=== PATIENT | male | born 1970 | race Caucasian/White ===

== ENCOUNTER 2020-08-06 11:04 | Emergency (ER) | payer OTHER ==
[~2020-08-06] VITALS: Ht 170.2 cm; Wt 98.9 kg
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
--- NOTE | 2020-08-06 11:10 | NUR ---
SEEN AND EXAMINED BY .
[2020-08-06] MEDS ORDERED: TDAP [DIPH/PERTUSSIS/TET] 0.5 ML VIAL IM ONE ×2 (11:19→11:30)
[2020-08-06] MEDS ORDERED: HYDROMORPHONE 1 MG/1 ML DISP.SYRIN ONE (11:19)
[2020-08-06] MEDS ORDERED: ONDANSETRON HCL/PF 4 MG/2 ML VIAL ONE (11:19)
--- NOTE | 2020-08-06 11:23 | NUR ---
WOUND CLEANING AND DRESSING DONE BY JAVA GROOV[employer] DEVELOPER.
[2020-08-06] MEDS ORDERED: CEFAZOLIN 1 GM in IV D5W 50 ML IV ONE (11:30)
[2020-08-06] MEDS ORDERED: HYDROMORPHONE 1 MG/1 ML DISP.SYRIN IV ONE (11:30)
[2020-08-06] MEDS ORDERED: ONDANSETRON HCL/PF 4 MG/2 ML VIAL IVP ONE (11:30)
--- NOTE | 2020-08-06 11:30 | NUR ---
COVID SPECIMEN OBTAINED AND SENT TO LAB.
--- NOTE | 2020-08-06 11:40 | NUR ---
PT IS WHEELED TO CT SCAN VIA [facility].
--- NOTE | 2020-08-06 12:15 | NUR ---
FAXED CLINICALS TO [facility].
--- NOTE | 2020-08-06 12:24 | NUR ---
FAXED CLINICALS TO [facility].
--- NOTE | 2020-08-06 12:42 | NUR ---
FAXED CLINICALS TO [facility].
--- NOTE | 2020-08-06 13:00 | NUR ---
FAXED CLINICALS TO [facility].
--- NOTE | 2020-08-06 13:04 | NUR ---
CALLED AND SPOKE TO PRETTY AT [facility]. UNABLE TO ACCEPT PATIENT DUE TO DO NOT HAVE SPECIALTY IN HOUSE.
--- NOTE | 2020-08-06 14:00 | NUR ---
CALLED AND SPOKE TO BALTAZAR FROM [facility] REGARDING UPDATE ON TRANSFER. AT THIS TIME OPTHAMOLOGIST IS CURRENTLY IN SURGERY, UNABLE TO CALL BACK. ONCE DOCTOR IS AVAILABLE, WILL CONTACT US BACK.
--- NOTE | 2020-08-06 14:20 | NUR ---
SPOKE TO CATHY FROM [facility]. THEY ARE UNABLE TO ACCOMODATE PATIENT. NO BEDS AVAILABLE.
[2020-08-06] MEDS ORDERED: hydrALAZINE HCL IV 20 MG VIAL IV ONE (14:30)
[2020-08-06] MEDS ORDERED: hydrALAZINE HCL IV 20 MG VIAL ONE (14:43)
--- NOTE | 2020-08-06 15:23 | NUR ---
CALLED [facility] AND SPOKE TO DIANA. ASKED FOR AN UPDATE AFTER SHE ADVISED TO CALL BACK IN 1 HOUR. STATED THAT THEIR OPTHOMOLOGIST IS STILL IN SURGERY, HE WILL CALL BACK WHEN HE IS AVAILABLE. STATED "IF YOU PICKED UP YOUR PHONES THEN YOU WOULD HAVE TALKED WITH HIM". STILL NO MD CALL BACK AT THIS MOMENT.
[2020-08-06 15:52] LABS: BASOPHILS # (AUTO) 0.1 /CMM (0.0-0.2); BASOPHILS % (AUTO) 0.4 % (0.0-2.0); EOSINOPHILS % (AUTO) 0.1 % (0.0-6.0); HEMATOCRIT 44 % (39-51); HEMOGLOBIN 14.8 g/dL (13.5-17.5); LYMPHOCYTES # (AUTO) 0.7 /CMM (0.8-4.8); MEAN CORPUSCULAR HGB CONC 33 g/dl (31.0-36.0); MEAN CORPUSCULAR VOLUME 85 fL (80-96); MONOCYTES # (AUTO) 0.6 /CMM (0.1-1.30); MONOCYTES % (AUTO) 4.5 % (2.0-12.0); NEUTROPHILS # (AUTO) 12.2 /CMM (1.8-8.9); PLATELET COUNT (AUTO) 198 /CMM (150-450); RED BLOOD CELL COUNT(AUTO) 5.24 MIL/uL (4.5-6.0); WHITE BLOOD COUNT (AUTO) 13.6 K/uL (4.3-11.0)
--- NOTE | 2020-08-06 15:53 | NUR ---
KIM CALLED TO [place] [facility]OLOG[facility] DISC TO [facility], ETA 30-45 MINUTES
[2020-08-06 16:03] LABS: CARBON DIOXIDE 24 mmol/L (21-32); CHLORIDE 99 mmol/L (98-107); CREATININE 0.9 mg/dL (0.6-1.3); GLUCOSE 157 mg/dL (74-106); POTASSIUM 3.9 mmol/L (3.5-5.1); SODIUM SERUM 135 mmol/L (136-145); UREA NITROGEN, BLOOD 9 mg/dL (7-18)
--- NOTE | 2020-08-06 17:01 | NUR ---
KIM CALLED , ETA 15 MINUTES
--- NOTE | 2020-08-06 17:32 | NUR ---
KIM CAME TO [employer]END TECHNICIAN PACKET AND TRANSPORT TO [facility].
--- NOTE | 2020-08-06 18:39 | NUR ---
Patient does not wish to proceed with medical care recommended by Dr. Whalen. Patient given information related to possible complications, up to and including , which could occur as a result of leaving the hospital at this time. Patient verbalizes understanding of risks involved due to leaving against medical advice. Patient has signed AMA form.
[2020-08-06 18:40] VITALS: BP 168/94
== END 2020-08-06 18:41 | disposition left against medical advice (07) ==
LOC: ER 11:04
DX: S01.112A Laceration without foreign body of left eyelid and periocular area, initial encounter (principal); W29.3XXA Contact with powered garden and outdoor hand tools and machinery, initial encounter; Y92.69 Other specified industrial and construction area as the place of occurrence of the external cause; R03.0 Elevated blood-pressure reading, without diagnosis of hypertension; Y99.0 Civilian activity done for income or pay; Z20.822 Contact with and (suspected) exposure to COVID-19; Z82.49 Family history of ischemic heart disease and other diseases of the circulatory system; R94.8 Abnormal results of function studies of other organs and systems; R00.0 Tachycardia, unspecified; R94.31 Abnormal electrocardiogram [ECG] [EKG]
CPT/HCPCS: 36415; 70480; 71045; 80048; 83880; 84484; 85025; 85610; 85730; 87426; 90471; 90715; 93005; 96365; 96375; 99285; C9803; J0360; J0690; J1170; J2405; J7060

== ENCOUNTER 2023-04-29 16:15 | Emergency (ER) | payer OTHER ==
[~2023-04-29] VITALS: Ht 177.8 cm; Wt 90.7 kg
[2023-04-29 16:21] VITALS: BP 171/118; TEMP 98.2; O2SAT 96
[2023-04-29] MEDS ORDERED: LIDOCAINE 1% INJ 50 ML MDV IJ ONE (16:54)
[2023-04-29] MEDS ORDERED: TDAP [DIPH/PERTUSSIS/TET] 0.5 ML VIAL IM ONE ×2 (17:00→17:15)
== END 2023-04-29 17:50 | disposition home or self-care (01) ==
LOC: ER 16:30
DX: S61.411A Laceration without foreign body of right hand, initial encounter (principal); W27.0XXA Contact with workbench tool, initial encounter; Y93.89 Activity, other specified; Y92.89 Other specified places as the place of occurrence of the external cause; Y99.8 Other external cause status
CPT/HCPCS: 12001; 90471; 90715; 99283; J3490